=== PATIENT | male | born 1990 ===

== ENCOUNTER 2023-08-24 22:15 | Emergency (ER) | payer OTHER ==
[~2023-08-24] VITALS: Ht 180.3 cm; Wt 102.0 kg
[2023-08-24 22:37] LABS: BASOPHILS 0.3 % (0-2); EOSINOPHILS 0.6 % (0-6); HEMATOCRIT 50.1 % (35.0-50.0); HEMOGLOBIN 17.4 g/dL (12.0-18.0); LYMPHOCYTES 25.1 % (24-44); MCH 30.6 (27-36); MCHC 34.7 g/dl (30-36); MCV 88.3 fl (81-99); MONOCYTES 10.1 % (0-12); NEUTROPHILS 63.9 % (39-80); PLATELET COUNT 357 K/uL (140-440); RBC 5.68 M/ul (4.3-5.7); RDW 13.4 (10.5-15.0)
--- OUTSIDE RECORDS SUMMARY | 2023-08-24 22:41 | XMS ---
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 [facility] has no Care Guidelines for this patient. Margie VISIT COUNT (12 MO.) 1 XOCHITL Silvestre TOTAL 1 NOTE: Visits indicate total known visits. ED/C VISIT TRACKING (12 MO.) 08/24/2023 22:16 XOCHITL Walker OR TYPE: Emergency COMPLAINT: - VOMITING INPATIENT VISIT TRACKING (12 MO.) No inpatient visits to display in this time frame [email or web address]
[2023-08-24] MEDS ORDERED: FAMOTIDINE 20 MG/ 2 ML VIAL IV ONE (22:45)
[2023-08-24] MEDS ORDERED: ondansetron HCL 4 MG/2 ML VIAL IV ONE (22:45)
[2023-08-24] MEDS ORDERED: LACTATED RINGER'S 1,000 ML IV ONE (22:45)
[2023-08-24 22:51] LABS: ALBUMIN 3.9 g/dL (3.4-5.0); ALBUMIN/GLOBULIN RATIO 0.83 (1.1-2.4); ANION GAP 13.5 (7-21); BILIRUBIN, TOTAL 0.8 ng/dL (0.2-1.0); BUN/CREATININE RATIO 14.49 (6.0-28.6); CALCIUM 9.3 mg/dL (8.5-10.1); CREATININE, SERUM 1.38 mg/dL (0.70-1.30); MAGNESIUM 2.5 mg/dL (1.8-2.4); POTASSIUM 3.5 mmol/L (3.5-5.1); PROTEIN, TOTAL 8.6 g/dL (6.4-8.2)
[2023-08-25 00:31] LABS: BILIRUBIN, URINE POSITIVE (negative); BLOOD/HGB, URINE NEGATIVE (Negative); KETONE, URINE >=80 (Negative); LEUK ESTERASE, URINE NEGATIVE (negative); NITRITE, URINE NEGATIVE (negative)
[2023-08-25 00:46] LABS: AMPHETAMINES, URINE NEGATIVE (NEGATIVE); BARBITURATES, URINE NEGATIVE (NEGATIVE); BENZODIAZEPINE, URINE NEGATIVE (NEGATIVE); BUPRENORPHINE, URINE NEGATIVE (NEGATIVE); CANNABINOID, URINE NEGATIVE (NEGATIVE); COCAINE, URINE POSITIVE (NEGATIVE); ECSTASY, URINE NEGATIVE (NEGATIVE); FENTANYL, URINE NEGATIVE (NEGATIVE); METHADONE, URINE NEGATIVE (NEGATIVE); OPIATES, URINE NEGATIVE (NEGATIVE); OXYCODONE, URINE NEGATIVE (NEGATIVE); PHENCYCLIDINE, URINE NEGATIVE (NEGATIVE)
[2023-08-25] MEDS ORDERED: ONDANSETRON ODT4 MG PO (00:54)
[2023-08-25] MEDS ORDERED: OMEPRAZOLE20 MG PO (00:54)
[2023-08-25] MEDS ORDERED: ONDANSETRON 4 MG HOME.PACK SL ONE (01:00)
[2023-08-25 01:16] VITALS: BP 129/78
== END 2023-08-25 01:19 | disposition home or self-care (01) ==
LOC: ED 22:15
PROVIDERS: Internal Medicine
DX: K21.9 Gastro-esophageal reflux disease without esophagitis (principal); R11.2 Nausea with vomiting, unspecified
CPT/HCPCS: 36415; 80053; 80307; 81003; 83690; 83735; 85025; 96361; 96374; 96375; 99284-25; A9270; J2405; J7121